=== PATIENT | male | born 1965 | race African-American/Black ===

== ENCOUNTER 2024-08-30 11:09 | Emergency (ER) | payer OTHER ==
[2024-08-30 11:20] VITALS: BP 137/93; PULSE 66; RESP 18; TEMP 98; BMI 35.9
[2024-08-30] MEDS ORDERED: ACETAMINOPHEN 325 MG TABLET (FP) ONE (11:59)
[2024-08-30] MEDS: ACETAMINOPHEN 500 MG TABLET (FP) PO ONE (12:05)
== END 2024-08-30 12:41 | disposition home or self-care (01) ==
LOC: JER 11:09
DX: M25.511 Pain in right shoulder (principal); V43.52XA Car driver injured in collision with other type car in traffic accident, initial encounter
CPT/HCPCS: 73030-TC-RT-FY; 99283-25